=== PATIENT | male | born 2000 | race Caucasian/White ===

== ENCOUNTER → 2021-06-29 10:00 | Outpatient (CLI) | payer OTHER, SELFPAY | PROVIDERS: Visit Provider Family Medicine | DX: Z23 Encounter for immunization (principal) ==

== ENCOUNTER 2022-04-13 21:39 | Emergency (ER) | payer OTHER, SELFPAY ==
[2022-04-13 21:40] VITALS: BP 145/90; PULSE 106; RESP 16; TEMP 36.9; O2SAT 99; BMI 20.3
--- NOTE | 2022-04-13 22:07 | EX.ED.DYSGE1 ---
HPI History of Present Illness Chief Complaint: Bite Narrative Narrative: Patient is a a 21-year-old male with no significant past medical history. He is from the [facility] where they had multiple bat bites. Patient states he does not noticed a bat in his dorm room but that after spending time at a friend's place he then noticed a few days later there were apparently 2 small puncture/bite wounds to his left ankle. He states that the wounds are more prevalent when he noticed them and over the past 5 to 7 days have almost completely healed. He states there is been no fevers chills pain or redness associate with this but with all of the events occurring As he was concerned this could have been caused by a bat and that he may need rabies prophylaxis and therefore comes in for evaluation. [facility] Medical History (Updated 04/13/22 @ 22:20 by Luz García) History of asthma Medical History no medical history no medical history Home Medications albuterol 90 mcg/actuation aerosol inhaler 90 mcg inhalation PRN PRN Shortness Of Breath 04/13/22 [History Last Taken Unknown] Allergy/AdvReac Type Severity Reaction Status Date / Time No Known Allergies Allergy Verified 04/13/22 21:42 Social History Smoking Status: Never smoker [facility] ED Constitutional Constitutional ED: Denies chills or fever(s) ENT ENT ED: Denies sore throat Cardiovascular Cardiovascular: Denies chest pain Respiratory/Chest Respiratory/Chest: Denies cough or dyspnea Gastrointestinal Gastrointestinal: Denies abdominal pain, diarrhea, nausea or vomiting Genitourinary Genitourinary ED: Denies dysuria Musculoskeletal Musculoskeletal: Denies myalgias Integumentary Reports other Details: Positive bite/puncture wound left ankle ; Denies rash Neurologic Neurologic: Denies headache(s) Hematologic/Lymphatic Hematologic/Lymphatic: Denies easy bleeding or easy bruising EXAM Physical Exam Const Vital Signs: 04/13/22 21:40 Temperature 98.4 F Temperature Source Temporal Pulse Rate 106 H Respiratory Rate 16 Blood Pressure 145/90 H Blood Pressure Mean 108 Pulse Ox 99 Oxygen Delivery Method Room Air Positive well nourished and well developed General Appearance ED: well developed Eyes PERRL and EOMs intact bilaterally Neck supple Resp normal respiratory effort and clear to auscultation bilaterally Cardio regular rate and regular rhythm Extremity Extremity Narrative: The left lower extremity is neurovascularly intact. Along the lower portion of the lateral malleolus there are 2 small apparent puncture wounds that are healing without surrounding erythema or warmth discharge streaking or pain with palpation. Neuro oriented x3 and CN's II-XII intact bilaterally Sensorium / Orientation: alert Psych mental status grossly normal Skin no rashes or lesions noted Skin Narrative: Soft tissue changes along the left lateral malleolus as documented above MDM MDM MDM Narrative Medical decision making narrative: Patient presented with stable vitals and no signs of secondary infection around his left ankle. The patient had no idea what had caused the puncture wounds but as he lives on campus where there have been multiple bat bites there is concern that this could have been the cause for the initial injury. He is 1 to 2 weeks out from apparent bite but at this time with the possible exposure I do feel it is safest to provide the rabies vaccination as well as immunoglobulin at this time. Patient agrees to this treatment and therefore we will begin his injections but otherwise he has no signs of secondary infection is safe for discharge. Discharge Plan Triage Chief Complaint: Bite ED Provider: Elmer Mata Dx/Rx/DC Orders Clinical Impression: Bat bite wound, Rabies, need for prophylactic vaccination against Instructions: ED Animal Bite (General) Prescriptions: No Action albuterol 90 mcg/actuation Aerosol 90 mcg INHALATION PRN PRN (Reason: Shortness Of Breath) Primary Care Provider: Care Physician,No Primary Referrals: Ambreen Oakley MD [Med Staff - Assistant Scientist] - 3-5 Days if not improving NOT,DEFINED [Non-Staff] - Activity Restrictions/Additional Instructions: Please return for your next rabies vaccination doses as directed and if you have any further concerns please follow-up with your family doctor or return to the ER for repeat evaluation Disposition Disposition: Home, Self Care
[2022-04-13] MEDS: Rabies Immune Globulin/PF 300 UNIT/ML, 5 ML VIAL 1360 UNIT IM (22:25)
[2022-04-13] MEDS: Rabies Vaccine,Human Diploid 2.5 UNITS Vial IM (22:27)
[2022-04-13 22:32] VITALS: BP 155/93; PULSE 110; RESP 18; O2SAT 100
== END 2022-04-13 22:48 | disposition home or self-care (01) ==
LOC: ED 22:19
PROVIDERS: Emergency Provider Emergency Medicine; Visit Provider Emergency Medicine
DX: S91.032A Puncture wound without foreign body, left ankle, initial encounter (principal); Z23 Encounter for immunization; W55.81XA Bitten by other mammals, initial encounter; Y92.214 College as the place of occurrence of the external cause; J45.909 Unspecified asthma, uncomplicated
CPT/HCPCS: 90375; 90675; 96372; 99282

== ENCOUNTER 2022-04-16 17:06 | Outpatient (CLI) | payer OTHER, SELFPAY ==
[2022-04-16 17:07] VITALS: BP 130/74; PULSE 74; RESP 15; TEMP 36.9; O2SAT 99; BMI 20.3; BMI 24.4
[2022-04-16] MEDS: Rabies Vaccine,Human Diploid 2.5 UNITS Vial IM (18:14)
== END 2022-04-16 18:16 | disposition home or self-care (01) ==
PROVIDERS: PCP Pediatrics; Visit Provider Emergency Medicine
DX: Z23 Encounter for immunization (principal)
CPT/HCPCS: 90675; 96372

== ENCOUNTER 2022-04-20 15:33 | Outpatient (CLI) | payer OTHER, SELFPAY ==
[2022-04-20 15:53] VITALS: BP 118/76; PULSE 84; RESP 16; TEMP 36.9; O2SAT 97; BMI 20.3
[2022-04-20] MEDS: Rabies Vaccine,Human Diploid 2.5 UNITS Vial IM (15:53)
== END 2022-04-20 16:13 | disposition home or self-care (01) ==
PROVIDERS: PCP Pediatrics; Visit Provider Emergency Medicine
DX: Z23 Encounter for immunization (principal)
CPT/HCPCS: 90675; 96372

== ENCOUNTER 2022-04-27 15:58 | Outpatient (CLI) | payer OTHER, SELFPAY ==
[2022-04-27] MEDS: Rabies Vaccine,Human Diploid 2.5 UNITS Vial IM (16:08)
[2022-04-27 16:09] VITALS: BP 120/78; PULSE 94; RESP 16; O2SAT 97
== END 2022-04-27 16:31 | disposition home or self-care (01) ==
LOC: ED 18:13
PROVIDERS: PCP Pediatrics; Visit Provider Emergency Medicine
DX: Z23 Encounter for immunization (principal)
CPT/HCPCS: 90675; 96372